=== PATIENT | female | born 1955 ===

== ENCOUNTER 2021-06-11 20:20 | Emergency (ER) | payer SELFPAY ==
[2021-06-11] MEDS ORDERED: TETRACAINE HCL 0.5% 4ML OPTH ONE (21:13)
[2021-06-11] MEDS ORDERED: FLUORESCEIN SODIUM 1 MG/WRAP ONE (21:14)
--- NOTE | 2021-06-11 21:38 | ER ---
Nurse's Notes [facility] Name: Soumya Bailey Age: 66 yrs Sex: Female : 1955 Arrival Date: 06/11/2021 Time: 20:23 Bed 6 Private MD: Diagnosis: Ocular pain, right eye;Acute atopic conjunctivitis, right eye Presentation: 06/11 20:48 Chief complaint: Patient states: eye irritation. Coronavirus screen: Vaccine status: gaetano Patient reports being unvaccinated. Patient reports having had a previously documented Covid positive illness. Ebola Screen: Patient negative for fever greater than or equal to 101.5 degrees Fahrenheit, and additional compatible Ebola Virus Disease symptoms Patient denies exposure to infectious person. Patient denies travel to an Ebola-affected area in the 21 days before illness onset. Initial Sepsis Screen: Does the patient meet any 2 criteria? No. Patient's initial sepsis screen is negative. Does the patient have a suspected source of infection? No. Patient's initial sepsis screen is negative. Risk Assessment: Do you want to hurt yourself or someone else? Patient reports no desire to harm self or others. Onset of symptoms was June 11, 2021. 20:48 Method Of Arrival: Ambulatory gaetano 20:48 Acuity: MARINA 3 gaetano Triage Assessment: 20:51 General: Appears uncomfortable, Behavior is calm, cooperative. Pain: Complains of pain gaetano in right eye and left eye. Historical: - Allergies: 20:51 Sulfa (Sulfonamide Antibiotics); gaetano - Immunization history:: Client reports having NOT received the Covid vaccine. - Social history:: Smoking status: Patient denies any tobacco usage or history of. Patient uses alcohol, but reports only rare drinking. Screenin:45 Abuse screen: Denies threats or abuse. Denies injuries from another. Nutritional sm5 screening: No deficits noted. Tuberculosis screening: No symptoms or risk factors identified. Fall Risk None identified. Assessment: 21:51 General: Appears in no apparent distress. Behavior is cooperative. Neuro: No deficits sm5 noted. Level of Consciousness is awake, alert, obeys commands, Oriented to person, place, time, situation. Cardiovascular: No deficits noted. Capillary refill < 3 seconds Patient's skin is warm and dry. Respiratory: No deficits noted. Airway is patent Trachea midline Respiratory effort is even, unlabored. EENT: Reports pain in left eye and right eye photophobia in left eye and right eye. Vital Signs: 20:48 BP 160 / 97; Pulse 81; Resp 18; Temp 98.5; Pulse Ox 99% on R/A; Weight 52.16 kg; Height gaetano 5 ft. 3 in. (160.02 cm); Pain 9/10; 20:52 BP 160 / 97; Pulse 81; Resp 18; Temp 98.5; Pulse Ox 99% on R/A; Pain 8/10; gaetano 21:52 BP 148 / 87; Pulse 79; Resp 18; Pulse Ox 100% on R/A; sm5 20:48 Body Mass Index 20.37 (52.16 kg, 160.02 cm) gaetano ED Course: 20:23 Patient arrived in ED. ja2 20:50 Marty Torres DO is Attending Physician. ms3 20:50 Triage completed. gaetano 20:53 Arm band placed on right wrist. gaetano 20:55 Aruna Farmer, MOE is Primary Nurse. sm5 21:36 Jasbir Wood MD is Referral Physician. ms3 21:51 Patient has correct armband on for positive identification. Bed in low position. Call sm5 light in reach. Side rails up X2. 21:51 No provider procedures requiring assistance completed. Patient did not have IV access sm5 during this emergency room visit. Administered Medications: 21:38 Drug: Tetracaine Drops 0.5 % 1 drops {Note: administered by Dr. Torres.} Route: sm5 Ophthalmic; Site: both eyes; Outcome: 21:37 Discharge ordered by . ms3 21:51 Discharged to home ambulatory. sm5 21:51 Condition: stable 21:51 Discharge instructions given to patient, Instructed on discharge instructions, follow up and referral plans. medication usage, Demonstrated understanding of instructions, follow-up care, medications, Prescriptions given X 1. 21:52 Patient left the ED. 5 Signatures: Marty Torres DO DO ms3 Jacobo Ruby ja2 Aruna Farmer, MOE ROSA 5 Tiana Borges RN RN bo
--- NOTE | 2021-06-11 21:38 | EDPHYS ---
Physician Documentation [facility] Name: Soumya Bailey Age: 66 yrs Sex: Female : 1955 Arrival Date: 06/11/2021 Time: 20:23 Bed 6 Private MD: ED Physician Marty Torres HPI: 06/11 21:09 This 66 yrs old Female presents to ER via Ambulatory with complaints of Eye Problem. ms3 21:09 The patient is experiencing pain, redness. Onset: The symptoms/episode began/occurred ms3 acutely. 21:09 Onset: The symptoms/episode began/occurred 1 day(s) ago. Duration: the symptoms are ms3 continuous. Aggravated by nothing. Alleviated by Ice to eye. Associated signs and symptoms: Pertinent negatives: None. Patient wears soft contacts. 66-year-old female presents for right eye pain that began earlier today. Patient states her pain is a 10/10 describable. Patient denies dieting factors. Patient states applying ice to her eye improved the symptoms. Patient denies fevers, chills, nausea, vomiting.. Historical: - Allergies: 20:51 Sulfa (Sulfonamide Antibiotics); gaetano - Immunization history:: Client reports having NOT received the Covid vaccine. - Social history:: Smoking status: Patient denies any tobacco usage or history of. Patient uses alcohol, but reports only rare drinking. ROS: 21:09 Constitutional: Negative for fever, and chills. Eyes: Negative for injury, pain, ms3 redness, and discharge, Neck: Negative for injury, pain, and swelling, Cardiovascular: Negative for chest pain, and palpitations. Respiratory: Negative for shortness of breath, cough, wheezing, and pleuritic chest pain, Skin: Negative for injury, rash, and discoloration, Neuro: Negative for headache, weakness, numbness, tingling. Psych: Negative for depression, anxiety, suicide ideation, homicidal ideation, and hallucinations. 21:09 Eyes: Positive for pain, tearing, Negative for blurry vision, swelling. 21:09 All other systems are negative. 21:09 All other systems are negative. Exam: 21:09 Constitutional: This is a well developed, well nourished patient who is awake, alert, ms3 and in no acute distress. Head/Face: Normocephalic, atraumatic. ENT: Nares patent. No nasal discharge, no septal abnormalities noted. Tympanic membranes are normal and external auditory canals are clear. Oropharynx with no redness, swelling, or masses, exudates, or evidence of obstruction, uvula midline. Mucous membranes moist. Chest/axilla: Normal chest wall appearance and motion. Nontender with no deformity. Cardiovascular: Regular rate and rhythm with a normal S1 and S2. No gallops, murmurs, or rubs. Normal PMI, no JVD. No pulse deficits. Respiratory: Lungs have equal breath sounds bilaterally, clear to auscultation and percussion. No rales, rhonchi or wheezes noted. No increased work of breathing, no retractions or nasal flaring. Abdomen/GI: Soft, non-tender, with normal bowel sounds. No distension or tympany. No guarding or rebound. No evidence of tenderness throughout. Skin: Warm, dry with normal turgor. Normal color with no rashes, no lesions, and no evidence of cellulitis. MS/ Extremity: Pulses equal, no cyanosis. Neurovascular intact. Full, normal range of motion. Psych: Awake, alert, with orientation to person, place and time. Behavior, mood, and affect are within normal limits. 21:09 Eyes: Periorbital structures: appear normal, Pupils: equal, round, and reactive to light and accomodation, Extraocular movements: no acute changes, Conjunctiva: injected, in the right eye, Intraocular pressure: right eye = 14mmHg, No corneal abrasion seen on guillen lamp exam with stain. Vital Signs: 20:48 BP 160 / 97; Pulse 81; Resp 18; Temp 98.5; Pulse Ox 99% on R/A; Weight 52.16 kg; Height gaetano 5 ft. 3 in. (160.02 cm); Pain 9/10; 20:52 BP 160 / 97; Pulse 81; Resp 18; Temp 98.5; Pulse Ox 99% on R/A; Pain 8/10; gaetano 21:52 BP 148 / 87; Pulse 79; Resp 18; Pulse Ox 100% on R/A; sm5 20:48 Body Mass Index 20.37 (52.16 kg, 160.02 cm) gaetano MDM: 21:09 Patient medically screened. ms3 21:09 Differential diagnosis: Corneal abrasion of right eye. Corneal ulcer of right eye. ms3 21:37 Data reviewed: vital signs, nurses notes. Counseling: I had a detailed discussion with ms3 the patient and/or guardian regarding: the historical points, exam findings, and any diagnostic results supporting the discharge/admit diagnosis, the need for outpatient follow up, an opthalmologist, to return to the emergency department if symptoms worsen or persist or if there are any questions or concerns that arise at home. ED course: Discussed physical exam findings with patient. Patient to follow-up with ophthalmology as discussed. All questions were answered. Return precautions discussed include worsening symptoms, or any other concerns.. Administered Medications: 21:38 Drug: Tetracaine Drops 0.5 % 1 drops {Note: administered by Dr. Torres.} Route: sm5 Ophthalmic; Site: both eyes; Disposition Summary: 06/11/21 21:37 Discharge Ordered Location: Home ms3 Condition: Stable ms3 Diagnosis - Ocular pain, right eye ms3 - Acute atopic conjunctivitis, right eye ms3 Followup: ms3 - With: Jasbir Wood MD - When: 2 - 3 days - Reason: Re-evaluation by your physician Discharge Instructions: - Discharge Summary Sheet ms3 - How to Use Eye Drops and Eye Ointments ms3 - Viral Conjunctivitis, Adult ms3 Forms: - Medication Reconciliation Form ms3 - Thank You Letter ms3 - Antibiotic Education ms3 - Prescription Opioid Use ms3 Prescriptions: - Erythromycin 5 mg/gram (0.5 %) Ophthalmic Ointment - apply 1 ribbon by OPHTHALMIC route every 8 hours; 1 tube; Refills: 0, Product ms3 Selection Permitted Signatures: Marty Torres DO DO ms3 Aruna Farmer, RN RN sm5 Tiana Borges RN RN gaetano
[2021-06-11 22:57] VITALS: TEMP 98.5
[2021-06-11 22:59] VITALS: BP 148/87; O2SAT 100
== END 2021-06-11 21:52 | disposition home or self-care (01) ==
LOC: ER 20:20
DX: H57.11 Ocular pain, right eye (principal); H10.11 Acute atopic conjunctivitis, right eye
CPT/HCPCS: 99283